=== PATIENT | male | born 1950 | race Caucasian/White ===

== ENCOUNTER → 2018-11-23 | Outpatient (CLI) | payer MEDICARE, MEDICAID ==
[~2018-11-23] MED LIST: LIDOCAINE HCL 1% 20ML VIAL (Pyxis) INJ ONE; LIDOCAINE HCL 2% JELLY 5ML ONE; SODIUM BICARBONATE 4% (2.4MEQ) 5ML VIAL IV ONE
== END | disposition home or self-care (01) ==
LOC: NM 08:46
PROVIDERS: ATTEND Specialist
DX: N41.1 Chronic prostatitis (principal); I10 Essential (primary) hypertension; E78.2 Mixed hyperlipidemia; R07.9 Chest pain, unspecified; Z85.830 Personal history of malignant neoplasm of bone
CPT/HCPCS: 55700; 71045; 76872; 76942; 78306; 88305; A9503; J3490